=== PATIENT | male | born 2000 | race Two or more races ===

== ENCOUNTER 2023-12-29 21:46 | Emergency (ER) | payer OTHER ==
[~2023-12-29] VITALS: Ht 182.9 cm; Wt 156.9 kg
[2023-12-29] MEDS ORDERED: 0.9 % SODIUM CHLORIDE 1,000 ML IV STA (22:34)
[2023-12-29] MEDS ORDERED: FAMOTIDINE/PF 20 MG in 0.9 % SODIUM CHLORIDE 8 ML IV PUSH STA (22:35)
[2023-12-29] MEDS ORDERED: FAMOtidine 200mg/20ml VIAL ONE (23:14)
[2023-12-30 00:21] LABS: HEMATOCRIT 44.1 % (39.0-48.0); HEMOGLOBIN 15.1 g/dL (13-16.00); MEAN CELL VOLUME 83.1 fL (80.0-100.00); MEAN CORPUSCULAR HEMOGLOBIN 28.5 pg (27.00-32.0); MEAN CORPUSCULAR HGB CONC 34.3 g/dl (32.0-36.0); PLATELET COUNT 256 K/uL (150-450); RED CELL DISTRIBUTION WIDTH 13.9 % (11.5-14.5)
[2023-12-30 00:31] LABS: CALCIUM 9.1 mg/dL (8.5-10.1); CREATININE SERUM 1.27 mg/dL (0.70-1.30); GFR 69.1
[2023-12-30 00:52] LABS: POTASSIUM 2.88 mEq/L (3.5-5.1)
[2023-12-30] MEDS ORDERED: POTASSIUM CHLORIDE IN 0.9%NACL 1,000 ML IV ONE (01:00)
[2023-12-30 01:05] LABS: URINE APPEARANCE Clear; URINE BILIRRUBIN Moderate (NEGATIVE); URINE BLOOD Small; URINE COLOR Dark Yellow; URINE GLUCOSE Negative (NEGATIVE); URINE LEUKOCYTE Trace; URINE NITRATE Negative; URINE PROTEIN 30 (NEGATIVE)
[2023-12-30 01:09] LABS: URINE BACTERIA 27.7 uL (0.0-1933); URINE EPITHELIAL CELLS 7.8 uL (0.0-38.8); URINE WBC 10.8 uL (0.0-23.2)
[2023-12-30 06:42] LABS: CALCIUM 9.4 mg/dL (8.5-10.1); CREATININE SERUM 1.12 mg/dL (0.70-1.30); GFR 79.88; POTASSIUM 3.19 mEq/L (3.5-5.1)
[2023-12-30] MEDS ORDERED: INTESTINEX680 M1 PO (07:25)
[2023-12-30] MEDS ORDERED: ZOFRAN8 MG PO (07:25)
[2023-12-30] MEDS ORDERED: LEVSIN/SL0.125 MG SL (07:25)
== END 2023-12-30 07:41 ==
LOC: ER 21:47
PROVIDERS: Emergency Medicine; General Practice
DX: K52.9 Noninfective gastroenteritis and colitis, unspecified (principal)